=== PATIENT | male | born 1980 | race Caucasian/White ===

== ENCOUNTER 2020-08-09 11:44 | Emergency (ER) | payer OTHER ==
[~2020-08-09] VITALS: Ht 167.6 cm; Wt 63.6 kg
--- NOTE | 2020-08-09 12:08 | PHYS DOC ---
Past Medical History Past Medical History: Anxiety Additional Past Medical Histor: SVT Additional Past Surgical Histo: L 5th digit pin Smoking Status: Never Smoker (chews tobacco) Alcohol Use: Occasionally Drug Use: None General Adult EDM: Chief Complaint: ANXIETY/PANIC ATTACK HPI: HPI: Patient is a 40 year old male, brought to the emergency department by EMS today, with reports of an anxiety attack. Patient states he was driving when he started to feel numb and tingly all over and like he could not take a deep breath. Patient reports a history of anxiety, he states that this is similar to previous anxiety attacks. Patient denies any illicit drug use, however he reports that he has been drinking heavily all weekend. He denies any abdominal pain, fever, cough, shortness of breath, sore throat, nausea, vomiting, diarrhea, body aches, chest pain, or palpitations. He denies any headache, difficulty speaking, or slurred speech. He currently denies any pain. Review of Systems: Review of Systems: Constitutional: Denies fever or chills. [] Eyes: Denies vision changes HENT: Denies nasal congestion or sore throat. [] Respiratory: Denies cough or shortness of breath. [] Cardiovascular: Denies chest pain or edema. [] GI: Denies abdominal pain, nausea, vomiting, or diarrhea. [] Musculoskeletal: Denies back pain or joint pain. [] Integument: Denies rash. [] Neurologic: Denies headache, focal weakness; see HPI Psychiatric: Denies depression; see HPI Heart Score: HEART Score for Chest Pain: HEART Score for Chest Pain Response (Comments) Value History Highly Suspicious 2 Total 2 Risk Factors: Risk Factors: DM, Current or recent (<one month) smoker, HTN, HLP, family history of CAD, obesity. Risk Scores: Score 0 - 3: 2.5% MACE over next 6 weeks - Discharge Home Score 4 - 6: 20.3% MACE over next 6 weeks - Admit for Clinical Observation Score 7 - 10: 72.7% MACE over next 6 weeks - Early Invasive Strategies Current Medications: Current Medications Medications (Trade) Dose Ordered Sig/Ovidio Start Time Stop Time Status Last Admin Dose Admin Multivitamins 10 ml/Thiamine HCl 100 mg/Folic Acid 1 mg/Sodium Chloride 1,011.2 ml @ 1,000.088 mls/hr 1X ONCE 08/09/20 12:00 08/09/20 13:00 UNV Physical Exam: PE: Constitutional: Well developed, well nourished, no acute distress, non-toxic appearance. [] HENT: Normocephalic, atraumatic, bilateral external ears normal, nose normal, dry mucous membranes [] Eyes: PERRLA, EOMI, conjunctiva normal, no discharge. [] Neck: Normal range of motion, no stridor. [] Cardiovascular:Heart rate regular rhythm Lungs & Thorax: Respirations even and unlabored, no retractions, no respiratory distress, lungs CTA Abdomen: soft, no tenderness Skin: Warm, dry, no erythema, no rash. [] Extremities: No cyanosis, ROM intact, no edema. [] Neurologic: Alert and oriented X 3, no focal deficits noted. [] Psychologic: Affect anxious, judgement normal, mood normal. [] EKG: EK-normal sinus rhythm, no STEMI, read by Dr. Hogan [] Radiology/Procedures: Radiology/Procedures: [] Course & Med Decision Making: Course & Med Decision Making Pertinent Labs and Imaging studies reviewed. (See chart for details) 40-year-old male presents to the emergency department with complaints of an anxiety attack. Patient reported that he was driving home when all said he began to have an anxiety attack. He reported heavy use of alcohol this weekend. He denies any illicit drug use. Patient was given a banana bag and 1 mg of Ativan in the emergency department. He reported feeling better after these medications. Work-up included labs, EKG, and monitoring. CBC was unremarkable; CMP revealed sodium of 133, alk phos of 130, total protein of 8.4 otherwise unremarkable; UA was unremarkable; urine drug screen was positive for ethyl alcohol in the urine only, patient's alcohol level was less than 10. EKG revealed no acute findings. The patient reported feeling better after fluids and medication. Encouraged patient follow-up with his primary care doctor in the next 1 to 2 days, return to the ER symptoms worsen. Patient verbalized an understanding of home care, medications, follow-up, and return to ED instructions and was in agreement with the plan of care. Dragon Disclaimer: Dragon Disclaimer: Complete ROS is negative unless otherwise noted in HPI. Departure Departure Impression: Primary Impression: Anxiety attack Disposition: 01 HOME, SELF-CARE Condition: STABLE Patient Instructions: Anxiety and Panic Attacks, [id number] Additional Instructions: Follow up with your primary care doctor or one of the providers below for further evaluation and treatment of your anxiety. Return to the ER if symptoms worsen. [facility] [address] [place] [address] [facility] [address] [place] [address] [facility] [address] [facility] [place] [place] [address] [facility] [address] [place] [address] [facility] [address] [place] [address] [facility] [address] [place] [address] [facility] [address] [place] [address] [facility] [address] [place] [address] [facility] [address] [place] [address] [facility] [address] [place] [address] NICOLE CULVER APRN Aug 09, 2020 12:08
[2020-08-09 12:12] LABS: BASO % 1 % (0-3); EOS % 0 % (0-3); HEMATOCRIT 45.9 % (39.0-53.0); HEMOGLOBIN 16.1 g/dL (13.0-17.5); LYMPH # 2.2 x10^3/uL (1.0-4.8); LYMPH % 24 % (24-48); MEAN CORPUSCULAR HEMOGLOBIN 30 pg (25-35); MEAN CORPUSCULAR HGB CONC 35 g/dL (31-37); MEAN CORPUSCULAR VOLUME 84 fL (79-100); MONO # 0.6 x10^3/uL (0.0-1.1); MONO % 6 % (0-9); NEUT # 6.3 x10^3/uL (1.8-7.7); NEUT % 69 % (31-73); PLATELET COUNT 333 x10^3/uL (140-400); RED BLOOD COUNT 5.45 x10^6/uL (4.30-5.70); RED CELL DISTRIBUTION WIDTH 13.6 % (11.5-14.5); WHITE BLOOD COUNT 9.2 x10^3/uL (4.0-11.0)
[2020-08-09 12:24] LABS: CALCIUM 9.5 mg/dL (8.5-10.1); CREATININE 1.1 mg/dL (0.7-1.3); GFR 74.1; POTASSIUM 3.5 mmol/L (3.5-5.1)
[2020-08-09 12:27] LABS: BILIRUBIN,URINE NEGATIVE (NEG); CLARITY,URINE CLEAR; COLOR,URINE YELLOW; NITRITE,URINE NEGATIVE (NEG); PROTEIN,URINE NEGATIVE (NEG-TRACE)
[2020-08-09 12:30] LABS: ALBUMIN 4.3 g/dL (3.4-5.0); TOTAL BILIRUBIN 0.6 mg/dL (0.2-1.0); TOTAL PROTEIN 8.4 g/dL (6.4-8.2)
[2020-08-09] MEDS ORDERED: MULTIVIT INFUSN,ADULT 4,VIT K 10 ML, THIAMINE INJ 100 MG, FOLIC ACID INJ 1 MG in IV NOR... IV ONE (12:30)
[2020-08-09 12:33] LABS: BARBITURATES NEG (NEG); BENZODIAZEPINES NEG (NEG); CANNABINOIDS NEG (NEG); COCAINE NEG (NEG); METHADONE NEG (NEG); OPIATES NEG (NEG); PHENCYCLIDINE NEG (NEG)
[2020-08-09 12:36] LABS: AMPHETAMINE/METHAMPHETAMINE NEG (NEG)
[2020-08-09 13:33] LABS: BACTERIA,URINE 0 /HPF (0-FEW); RBC,URINE 0 /HPF (0-2); WBC,URINE 0 /HPF (0-4)
[2020-08-09 14:20] VITALS: BP 140/89
== END 2020-08-09 14:27 | disposition home or self-care (01) ==
LOC: ER 11:44
DX: F41.9 Anxiety disorder, unspecified (principal); Z98.890 Other specified postprocedural states
CPT/HCPCS: 36415; 80053; 80307; 81001; 85025; 96365; 96375; 99284; G0480; J2060; J3411; J3490; J7030